=== PATIENT | female | born 1995 | race Caucasian/White ===

== ENCOUNTER 2017-09-06 21:27 | Emergency (ER) | payer BC ==
[~2017-09-06] VITALS: Ht 165.1 cm; Wt 56.0 kg
[2017-09-06 23:05] VITALS: BP 118/71
--- NOTE | 2017-09-06 23:12 | PHYS DOC ---
Adult General Chief Complaint Chief Complaint: FOREIGN BODY VAGINA HPI HPI Patient is a [age] year old [sex] who presents with [] Review of Systems Review of Systems Constitutional: Denies fever or chills [] Eyes: Denies change in visual acuity, redness, or eye pain [] HENT: Denies nasal congestion or sore throat [] Respiratory: Denies cough or shortness of breath [] Cardiovascular: No additional information not addressed in HPI [] GI: Denies abdominal pain, nausea, vomiting, bloody stools or diarrhea [] : Denies dysuria or hematuria [] Musculoskeletal: Denies back pain or joint pain [] Integument: Denies rash or skin lesions [] Neurologic: Denies headache, focal weakness or sensory changes [] Endocrine: Denies polyuria or polydipsia [] All other systems were reviewed and found to be within normal limits, except as documented in this note. Allergies Allergies Allergies Coded Allergies Type Severity Reaction Last Updated Verified No Known Drug Allergies 09/06/17 No Physical Exam Physical Exam Constitutional: Well developed, well nourished, no acute distress, non-toxic appearance. [] HENT: Normocephalic, atraumatic, bilateral external ears normal, oropharynx moist, no oral exudates, nose normal. [] Eyes: PERRLA, EOMI, conjunctiva normal, no discharge. [] Neck: Normal range of motion, no tenderness, supple, no stridor. [] Cardiovascular:Heart rate regular rhythm, no murmur [] Lungs & Thorax: Bilateral breath sounds clear to auscultation [] Abdomen: Bowel sounds normal, soft, no tenderness, no masses, no pulsatile masses. [] Skin: Warm, dry, no erythema, no rash. [] Back: No tenderness, no CVA tenderness. [] Extremities: No tenderness, no cyanosis, no clubbing, ROM intact, no edema. [] Neurologic: Alert and oriented X 3, normal motor function, normal sensory function, no focal deficits noted. [] Psychologic: Affect normal, judgement normal, mood normal. [] EKG EKG [] Radiology/Procedures Radiology/Procedures [] Course & Med Decision Making Course & Med Decision Making Pertinent Labs and Imaging studies reviewed. (See chart for details) [] Dragon Disclaimer Dragon Disclaimer This electronic medical record was generated, in whole or in part, using a voice recognition dictation system. Departure Departure: Impression: Primary Impression: Vaginal foreign body Disposition: HOME, SELF-CARE Condition: GOOD Referrals: PCP,ANTHONY (PCP) Patient Instructions: Vaginal Foreign Body, [id number] Additional Instructions: You have a tampon in your vagina which has been there for some time. It has now been removed. Follow-up with your [facility] doctor if you have any persistent symptoms. Going forward, he careful track of whether or not you have a tampon in your vagina and make sure to insert them with the string down. LES LEW MD Sep 06, 2017 23:12
== END 2017-09-06 23:15 | disposition home or self-care (01) ==
LOC: ER 21:27
DX: T19.2XXA Foreign body in vulva and vagina, initial encounter (principal); X58.XXXA Exposure to other specified factors, initial encounter; Y93.89 Activity, other specified; Y99.8 Other external cause status; Y92.89 Other specified places as the place of occurrence of the external cause
CPT/HCPCS: 99283

== ENCOUNTER → 2020-02-27 | Outpatient (CLI) | payer BC, OTHER ==
--- NOTE | 2020-02-27 16:35 | RAD ---
Clinical indications: Uterine size and date discrepancy. Findings: A single intrauterine fetus is seen in breech position. heart rate is 155 beats per minute. BPD is 3.79 cm which equals 17 weeks 4 days. HC is 14.22 cm which equals 17 weeks 4 days. AC is 12.46 cm which equals 18 weeks 1 day. FL is 2.38 cm which equals 17 weeks 1 day. Average gestational age by ultrasound is 17 weeks 4 days +/- 10 days with an EDC of August 02, 2020. Estimated weight is 0 lbs and 7 oz. A four-chamber heart and three-vessel cord are identified. stomach and urinary bladder are identified. kidneys are unremarkable. Cord insertion site is unremarkable. The intracranial structures and spine are morphologically normal in appearance. The ventricular trigone measurement is 5 mm. Cisterna magna measurement is 2 mm. Four extremities are identified. JEANINE using the four quadrant method is 10.1 cm. Cervical length is 4.1 cm. A grade 0 posterior placenta is seen. No placenta previa and no placenta abruptio is identified. The maternal ovaries are not visualized. Impression: Single IUP with gestational age of 17 weeks 4 days. Electronically signed by: Janak Xiong MD (02/27/2020 4:32 PM) [id number]
== END | disposition home or self-care (01) ==
LOC: US 10:42
PROVIDERS: ATTEND Obstetrics & Gynecology
DX: O26.842 Uterine size-date discrepancy, second trimester (principal); Z3A.17 17 weeks gestation of pregnancy
CPT/HCPCS: 76805

== ENCOUNTER 2020-06-27 23:57 | Emergency (ER) | payer OTHER ==
[~2020-06-27] VITALS: Ht 165.1 cm; Wt 91.0 kg
--- NOTE | 2020-06-28 00:01 | PHYS DOC ---
Past History Past Medical History: No Pertinent History, Hypertension, STD Additional Past Medical Histor: Vaginal/ Labial Herpies Past Medical History Pre-eclampsia- 06/27/20 Past Surgical History Hand surgery Alcohol Use: Occasionally Drug Use: Marijuana General Adult HPI: HPI: ".. I just left [facility]....they had done 24 hours on ring for preeclampsia..... But my blood pressure was up at home and when I called the nurse at [facility] they said I need to go to the nearest ER at home I was having pressures 180- 160 and the bottom was 100... " " Would rather have my baby daddy to just drive me to [facility].. I your going to draw blood or do any thing....I would rather my boy friend just drive me to [facility]... Patient is a 25 year old female who presents with above hx and complaints of HTN readings at home, 180- 160 systolic/ 100's diastolic at home. Patient is 35 weeks . This is her first . Patient recently completed a 24- hour observation for preeclampsia at [facility]. Reportedly labs were acceptable. Had no excessive protein in urine. Patient's doctors were concerned that she may need early induction at 37 weeks. Pt. follows with Dr. Yosvany Woods. Patient is on vitamins. This is her first . Not on antihypertensive meds at this time. Patient denies any trauma. Patient denies any travel. Patient denies any specific ill contacts. Patient normally healthy. Patient has been avoiding high salt foods. Does have past medical history of genital herpes. Patient states there has been no rupture or excessive vaginal fluids or bleeding. Does feel movements. Has not had any contractions. No changes in vision. No history of headaches. Is anxious about the findings of elevated blood pressure on her last [facility] visit. With Dr. Villagomez. No hx of immunosuppression. Review of Systems: Review of Systems: Constitutional: Denies fever or chills Eyes: Denies change in visual acuity HENT: Denies nasal congestion or sore throat Respiratory: Denies cough or shortness of breath Cardiovascular: Denies chest pain or edema. Complaints of hypertension GI: Denies abdominal pain, nausea, vomiting, bloody stools or diarrhea : Denies dysuria Musculoskeletal: Denies back pain or joint pain Integument: Denies rash Neurologic: Denies headache, focal weakness or sensory changes Endocrine: Denies polyuria or polydipsia Lymphatic: Denies swollen glands Psychiatric: Denies depression or anxiety Family History: Family History: Noncontributory to presentation Current Medications: Current Meds: See nursing for home meds Allergies: Allergies: Allergies Coded Allergies Type Severity Reaction Last Updated Verified No Known Drug Allergies 09/06/17 No Physical Exam: PE: Constitutional: , no acute distress, non-toxic appearance. Anxious HENT: Normocephalic, atraumatic, bilateral external ears normal, oropharynx moist, no oral exudates, nose normal. [] Eyes: PERRLA, EOMI, conjunctiva normal, no discharge. [] Neck: Normal range of motion, no tenderness, supple, no stridor. [] Cardiovascular:Heart rate regular rhythm, no murmur [] Lungs & Thorax: Bilateral breath sounds equal apex on auscultation [] Abdomen: Bowel sounds normal, soft, no tenderness, no masses, no pulsatile masses. Gravid. heart rate 140's . Obvious movements. Declined pelvic exam. Skin: Warm, dry, no erythema, no rash. [] Back: No tenderness, no CVA tenderness. [] Extremities: No tenderness, no cyanosis, no clubbing, ROM intact, trace ankle edema. Scar Rt. hand- surgery. Neurologic: Alert and oriented X 3, normal motor function, normal sensory function, no focal deficits noted. []DTR's +2 brachial and patella. Psychologic: Affect anxious, judgement normal, mood normal. [] EKG: EKG: Patient refused EKG [] Radiology/Procedures: Radiology/Procedures: Patient refused ultrasound [] Heart Score: Risk Factors: Risk Factors: DM, Current or recent (<one month) smoker, HTN, HLP, family history of CAD, obesity. Risk Scores: Score 0 - 3: 2.5% MACE over next 6 weeks - Discharge Home Score 4 - 6: 20.3% MACE over next 6 weeks - Admit for Clinical Observation Score 7 - 10: 72.7% MACE over next 6 weeks - Early Invasive Strategies Course & Med Decision Making: Course & Med Decision Making Pertinent Labs and Imaging studies reviewed. (See chart for details) Patient declined labs, patient declined EKG, patient declined ultrasound. Pt. stated if we were going to "do anything.". she prefer to just go to [facility] by private vehicle. Significant other states his car is in good working order.and that he also prefer to just drive to [facility]. Discussed presentation, testing and treatment plan with [id number] for Dr. Woods. She reviewed her earlier labs and observation information. Recommend patient present to OB triage at [facility]. [place] no need for labs or further work-up here but have the patient significant other drive pt. to the [facility] location., This was agreeable to both patient and her significant other. Risk discussed.. Impression: 1. History gravid 35 weeks first 2. Hypertension 3. Pre eclamptic- by HTN readings. ( Dr. Vu - felt lab s acceptable on previous exam yesterday) 4. History of vaginal herpes [] Dragon Disclaimer: Dragon Disclaimer: This electronic medical record was generated, in whole or in part, using a voice recognition dictation system. Departure Departure: Referrals: ALYSIA VILLAGOMEZ MD (PCP) Dragon Disclaimer This chart was dictated in whole or in part using Voice Recognition software in a busy, high-work load, and often noisy Emergency Department environment. It may contain unintended and wholly unrecognized errors or omissions. Dragon Disclaimer This chart was dictated in whole or in part using Voice Recognition software in a busy, high-work load, and often noisy Emergency Department environment. It may contain unintended and wholly unrecognized errors or omissions. CESILIA FLORES MD Jun 28, 2020 00:01
[2020-06-28] MEDS ORDERED: IV RINGERS SOLUTION,LACTATED 1,000 ML IV SCH (00:15)
[2020-06-28 00:47] VITALS: BP 156/98
== END 2020-06-28 00:47 | disposition short-term general hospital (02) ==
LOC: ER 23:57
DX: O16.3 Unspecified maternal hypertension, third trimester (principal); O14.93 Unspecified pre-eclampsia, third trimester; Z3A.35 35 weeks gestation of pregnancy
CPT/HCPCS: 93005; 99285

== ENCOUNTER 2021-06-10 14:02 | Emergency (ER) | payer OTHER ==
[~2021-06-10] VITALS: Ht 162.6 cm; Wt 63.0 kg
[2021-06-10 14:39] VITALS: BP 114/83
--- NOTE | 2021-06-10 14:47 | RAD ---
Single view of the chest. 06/10/2021 2:27 PM Indication: Reason: SOB, COUGH, BILATERAL LOWER LOBE PAIN / Spl. Instructions: / History: Comparison: CT chest February 08, 2009 Findings: There is no focal consolidation. There is no pleural effusion or pneumothorax. The cardiome diastinal silhouette and pulmonary vasculature are within normal limits. No acute osseous abnormaliti es are seen. Impression: No evidence of acute cardiopulmonary process. Electronically signed by: Srini Quintana MD (06/10/2021 2:45 PM) [id number]
[2021-06-10 15:36] LABS: INFLUENZA A PATIENT NEGATIVE (NEGATIVE); INFLUENZA B PATIENT NEGATIVE (NEGATIVE)
--- NOTE | 2021-06-10 15:52 | PHYS DOC ---
Past History Past Medical History: No Pertinent History, Hypertension, STD Additional Past Medical Histor: pneumonia, gest hypertension (DEVANTE AMEZCUA) Past Surgical History: Other Additional Past Surgical Histo: hand surgery (DEVANTE AMEZCUA) Smoking: Cigarettes Alcohol Use: None Drug Use: Marijuana (DEVANTE AMEZCUA) General Adult EDM: Chief Complaint: COUGH HPI: HPI: Patient is a 26 year old female who presents with shortness of breath, cough and chest wall pain with coughing. She states she is a smoker, so the symptoms are not entirely abnormal for her. However, she is worried about COVID-19 (DEVANTE AMEZCUA) Review of Systems: Review of Systems: ROS negative or noncontributory except as mentioned in HPI. (DEVANTE AMEZCUA) Allergies: Allergies: Allergies Coded Allergies Type Severity Reaction Last Updated Verified No Known Drug Allergies 09/06/17 No (DEVANTE AMEZCUA) Physical Exam: PE: Constitutional: Well developed, well nourished, no acute distress, non-toxic appearance. HENT: Normocephalic, atraumatic, bilateral external ears normal, oropharynx moist, no oral exudates, postnasal drip appreciated, nose without obvious deformity, bilateral nares with mucus visible. Eyes: PERRLA, EOMI, conjunctiva normal, no discharge. Neck: Normal range of motion, no tenderness, supple, no stridor. Cardiovascular: Heart rate regular rhythm, no murmur. Lungs & Thorax: Bilateral breath sounds clear to auscultation. Skin: Warm, dry, no erythema, no rash. (DEVANTE AMEZCUA) Current Patient Data: Labs: Laboratory Tests Test 06/10/21 14:48 Influenza Type A (Rapid) Negative (NEGATIVE) Influenza Type B (Rapid) Negative (NEGATIVE) Vital Signs: Vital Signs Date Time Temp Pulse Resp B/P (MAP) Pulse Ox O2 Delivery O2 Flow Rate FiO2 06/10/21 14:39 98.5 88 16 114/83 (93) 100 Room Air (DEVANTE AMEZCUA) Radiology/Procedures: Radiology/Procedures: PROCEDURE: CHEST AP ONLY Single view of the chest. 06/10/2021 2:27 PM Indication: Reason: SOB, COUGH, BILATERAL LOWER LOBE PAIN / Spl. Instructions: / History: Comparison: CT chest February 08, 2009 Findings: There is no focal consolidation. There is no pleural effusion or pneumothorax. The cardiomediastinal silhouette and pulmonary vasculature are within normal limits. No acute osseous abnormalities are seen. Impression: No evidence of acute cardiopulmonary process. Electronically signed by: Srini Quintana MD (06/10/2021 2:45 PM) [id number] (DEVANTE AMEZCUA) Heart Score: C/O Chest Pain: N/A (DEVANTE AMEZCUA) Course & Med Decision Making: Course & Med Decision Making Pertinent Labs and Imaging studies reviewed. (See chart for details) Patient presents with multiple complaints concerning for viral illness, and excluding COVID-19. Work-up today will include chest x-ray and swabs for influenza A&B as well as COVID-19. (DEVANTE AMEZCUA) Course & Med Decision Making I was the Attending physician on the above date of service of this patient. This patient was evaluated, examined, treated, and dispositioned from the emergency department by the mid-level practitioner. Although I was working at the time , no assistance was requested. Electronically signed, Anya Barnard DO (ANYA BARNARD DO) Neo Disclaimer: Neo Disclaimer: This electronic medical record was generated, in whole or in part, using a voice recognition dictation system. (DEVANTE AMEZCUA) Departure Departure: Impression: Primary Impression: Person under investigation for COVID-19 Disposition: HOME / SELF CARE / HOMELESS Condition: STABLE Referrals: PCP,NO (PCP) Patient Instructions: Viral Syndrome Additional Instructions: Follow the following supportive treatment measures: - Cool mist humidifier with plain water at bedside while you sleep - Mucinex (guaifenesin) per box instructions - Alternate ibuprofen and acetaminophen every four hours for body aches/fever/headache If antibiotics were prescribed, take them as directed. You have been tested for or diagnosed with COVID-19 infection. It is an infection caused by a new type of coronavirus. COVID-19 will cause cold-like or mild flu symptoms in most. It can cause more severe symptoms like problems breathing in some. There is no treatment for COVID-19. The body will clear the infection over time. Self-care will help to ease discomfort. Steps to Take: - Rest as needed. - Choose healthy foods including fruits and vegetables. Drink water throughout the day. - Get plenty of sleep each night. - If you smoke, try to quit. It may ease breathing. - Avoid alcohol. - Keep Others Healthy - The virus can spread to others. Droplets are released every time you sneeze or cough. The droplets can get into the mouth, nose, or eyes of people near you and lead to infection. To lower the chances of spreading COVID-19 to others: Stay at home until your doctor has said it is safe to leave. If you tested positive this will mean staying isolated until both of the following are true: - At least 10 days have passed since the start of illness. - You are free of fever for at least 72 hours without the use of medicine. During this time: - Avoid public areas, events, or transportation. Do not return to work or school until your doctor has said it is safe to do so. - Call ahead if you need to go to a medical center. Let them know you may have COVID-19. It will help them guide you where to go. They may also ask you to wear a facemask when you come to the office. - If you call for emergency medical services, let them know you may have COVID- 19. While at home: - Try to avoid close contact with others. Stay about 6 feet away. - If possible, spend most of your time in a separate room from others. - Use a face mask if you will be in close contact with others such as sharing a room or vehicle. - Have someone wipe down common surfaces in the home. Use household wet end operator every day on areas like doorknobs, counters, or sinks. - Cough or sneeze into a tissue. Throw the tissue away right after use. If a tissue is not available, cough or sneeze into your elbow. - Wash your hands often. Wash them after sneezing or coughing. Use soap and water and wash or at least 20 seconds. Alcohol based hand signs cleaner can be used if soap and water is not available. - Do not prepare food for others. Avoid sharing personal items like forks, spoons, or toothbrushes. - Avoid close contact with pets while you are sick. There is no evidence of the virus passing to pets. This is a safety step until more is known about this virus. - Isolation can be frustrating. Social interaction can help. Keep in touch with friends and family through phone and tech options. You can still interact with others in your home, just keep a safe distance of about 6 feet. Follow-up: - Your doctors office will check in with you to see if there are any changes in your health. - You may be asked to keep track of symptoms to share with them. They will also let you know when you are clear to be in public again. Contact your doctor if your recovery is not going as you expect. Get emergency care if you have problems such as: - Trouble breathing with oxygen saturation <90% - Nonstop chest pain or pressure - Changes in awareness, confusion, or problems waking - Lips or face have bluish color - Worsening of symptoms If you think you have an emergency, call for emergency medical services right away. As taken from [facility] DEVANTE AMEZCUA Jun 10, 2021 15:52 ANYA BARNARD DO Jun 11, 2021 06:56
== END 2021-06-10 16:00 | disposition home or self-care (01) ==
LOC: ER 14:02
DX: R06.02 Shortness of breath (principal); R07.89 Other chest pain; R05.9 Cough, unspecified; I10 Essential (primary) hypertension; F17.210 Nicotine dependence, cigarettes, uncomplicated; Z20.822 Contact with and (suspected) exposure to COVID-19
CPT/HCPCS: 71045; 87804; 99284; C9803; U0003